=== PATIENT | male | born 1940 | race Caucasian/White ===

== ENCOUNTER 2020-03-04 07:00 | Observation (INO) | payer MEDICARE, OTHER ==
[2020-02-29 09:54] LABS: BASOPHILS # (AUTO) 0.1 X10'3 (0-0.2); BASOPHILS % (AUTO) 1.2 % (0-1); EOSINOPHILS # (AUTO) 0.2 X10'3 (0-0.9); EOSINOPHILS % (AUTO) 3.7 % (0-6); LYMPHOCYTES # (AUTO) 1.3 X10'3 (1.1-4.8); LYMPHOCYTES % (AUTO) 27.4 % (21-51); MEAN CORPUSCULAR HEMOGLOBIN 31.9 PG (27.0-31.0); MEAN CORPUSCULAR HGB CONC 34.4 g/dL (33.0-36.5); MEAN CORPUSCULAR VOLUME 92.5 FL (78-98); MEAN PLATELET VOLUME 7.7 FL (7.4-10.4); MONOCYTES # (AUTO) 0.6 X10'3 (0-0.9); MONOCYTES % (AUTO) 12.8 % (2-12); NEUTROPHILS # (AUTO) 2.5 X10'3 (1.8-7.7); NEUTROPHILS % (AUTO) 54.9 % (42-75); PRE OP HEMATOCRIT 41.9 % (42.0-52.0); PRE OP HEMOGLOBIN 14.4 g/dL (14.0-17.9); PRE OP PLATELET COUNT 265 X10'3 (140-440); RED BLOOD COUNT 4.53 X10'6 (4.70-6.10); RED CELL DISTRIBUTION WIDTH 13.9 % (11.5-14.5)
[2020-02-29 10:11] LABS: ALBUMIN/GLOBULIN RATIO 1.1 (1.1-1.5); ALKALINE PHOSPHATASE 71 IU/L (46-116); BLOOD UREA NITROGEN 13 MG/DL (7-18); BUN/CREATININE RATIO 15.3 (5.4-32.0); CHLORIDE 106 MMOL/L (99-107); CREATININE 0.85 MG/DL (0.60-1.10); PRE OP ALT 25 U/L (30-65); PRE OP ANION GAP 7 (8-16); PRE OP AST 17 U/L (10-37); PRE OP BILIRUB, TOTAL 1.1 MG/DL (0.0-1.0); PRE OP GLUCOSE 95 MG/DL (70-104); PRE OP POTASSIUM 4.4 MMOL/L (3.4-5.1); PRE OP SODIUM 143 MMOL/L (135-145); TOTAL CARBON DIOXIDE 29.7 MMOL/L (24-32); TOTAL PROTEIN 7.6 G/DL (6.4-8.2); eGFR 87 ML/MIN
[~2020-03-04] VITALS: Ht 180.3 cm; Wt 81.9 kg
[2020-03-04] VITALS (22 sets, daily range): BP systolic 102–147; BP diastolic 49–81
[~2020-03-04 07:00] MED LIST: B-COMPLEX; VITAMIN C; ceFAZolin 2gm in dextrose, iso 50 ML IV ONE; famotidine 20mg tablet PO ONE; ringers solution, lacted 1,000 ML IV SCH
[2020-03-04] MEDS ORDERED: LIDOcaine 1% 30ml preserv. free vial ONE (08:51)
[2020-03-04] MEDS ORDERED: BUPIVAcaine/PF 2.5 mg/ml (0.25%) 30ml vial ONE (08:51)
[2020-03-04] MEDS ORDERED: epiNEPHrine 0.1mg/ml 10ml syringe ONE (09:07)
[2020-03-04] MEDS ORDERED: sevoflurane 250ml liquid IH ONE (09:07)
[2020-03-04] MEDS ORDERED: rocuronium 10mg/ml inj IV ONE (09:08)
[2020-03-04] MEDS ORDERED: neostigmine methylsulfate 1 MG/ML 10ml vial ONE (09:08)
[2020-03-04] MEDS ORDERED: ondansetron/PF 4mg/2ml inj ONE (09:08)
[2020-03-04] MEDS ORDERED: dexamethasone sod phosphate 4mg/ml inj. ONE (09:09)
[2020-03-04] MEDS ORDERED: glycopyrrolate 0.2mg/ml inj ONE (09:09)
[2020-03-04] MEDS ORDERED: fentaNYL/PF 50MCG/1 ML 2ML syringe ONE ×2 (09:09→10:33)
[2020-03-04] MEDS ORDERED: LIDOcaine 2% (20mg/ml) 5ml vial ONE (09:09)
[2020-03-04] MEDS ORDERED: propofol inj 20 ML IV ONE (09:09)
--- NOTE | 2020-03-04 10:14 | NUR ---
Received from OR via , accompanied by Anesthesiologist DR TOM and report given by Anesthesiolgist. AWAKENS TO VOICE. VITALS STABLE. DRESSINGS DI. JUSTIN PAIN. ABD SOFT.
[2020-03-04] MEDS ORDERED: HYDROcodone/acetaminophen 5mg/325mg tablet PO PRN ×2 (10:25→12:55)
[2020-03-04] MEDS ORDERED: HYDR-3964 PO (10:30)
--- NOTE | 2020-03-04 10:45 | NUR ---
MONITOR SHOWS PT IN AFIB. ANESTHESIA WAS NOTIFIED ,WITH ORDERS RECEIVED
--- NOTE | 2020-03-04 10:46 | NUR ---
PT JUSTIN CHEST PAIN OR SOB. SKIN IS WARM DRY AND PINK.
[2020-03-04 11:50] LABS: ALANINE AMINOTRANSFERASE 22 U/L (12-78); ALBUMIN 3.8 G/DL (3.4-5.0); ALBUMIN/GLOBULIN RATIO 1.1 (1.1-1.5); ALKALINE PHOSPHATASE 72 IU/L (46-116); ANION GAP 7 (8-16); ASPARTATE AMINO TRANSFERASE 21 U/L (10-37); BILIRUBIN,TOTAL 0.9 MG/DL (0.1-1.0); BLOOD UREA NITROGEN 10 MG/DL (7-18); CALCIUM 8.6 MG/DL (8.5-10.1); CHLORIDE 106 MMOL/L (99-107); CREATININE 0.83 MG/DL (0.60-1.10); GLUCOSE 100 MG/DL (70-104); POTASSIUM 3.8 MMOL/L (3.5-5.1); SODIUM 142 MMOL/L (135-145); TOTAL CARBON DIOXIDE 29.1 MMOL/L (24-32); TOTAL PROTEIN 7.3 G/DL (6.4-8.2); eGFR 90 ML/MIN
[2020-03-04 11:54] LABS: MAGNESIUM 2.3 MG/DL (1.5-2.4); TROPONIN I < 0.04 NG/ML (0.0-0.05)
[2020-03-04] MEDS ORDERED: ondansetron/PF 4mg/2ml inj IV PRN ×2 (12:20→12:55)
[2020-03-04] MEDS ORDERED: acetaminophen 325mg tablet PO PRN ×2 (12:20→12:55)
[2020-03-04] MEDS ORDERED: mag hydrox/Alum hydrox/simeth 30ml oral suspension PO PRN ×2 (12:20→12:55)
[2020-03-04] MEDS ORDERED: magnesium hydroxide 30ml (MOM) UD suspension PO PRN ×2 (12:20→12:55)
[2020-03-04] MEDS ORDERED: morphine 2 MG/ML inj. syringe IV PRN (12:55)
--- NOTE | 2020-03-04 14:43 | NUR ---
Report called to receiving nurse. Transferred via [facility] . Special Issues communicated to receiving nurse. AWAKE AND ORIENTED. VITALS STABLE. DRESSINGS DI. STATES ANLY MIN DISCOMFORT. MONITOR CONTINUES TO SHOW IN AND OUT OF AFIB. IS AWARE. TO [facility] RM 3011 AT THIS TIME.
--- NOTE | 2020-03-04 14:52 | NUR ---
Patient arrived to PCU and transferred from [facility] to bed. Oriented to room and to call light. Vital signs stable. Telemetry monitoring initiated. SR in 80-90's. Patient does not complain of pain. 2 RN skin check performed. 3 bandages noted on anterior abdomen s/p lap hernia repair. All immediate needs met at this time.
[2020-03-04] MEDS ORDERED: aspirin 325mg tablet, delayed-release (Ecotrin) PO ONE (16:40)
[2020-03-04] MEDS: heparin, porcine 5000 units/ml vial SQ SCH (16:46)
--- NOTE | 2020-03-04 18:31 | NUR ---
Problems reprioritized. Patient report given, questions answered & plan of care reviewed with HARPER Rome. Patient stable at transfer of care.
[2020-03-05] MEDS: heparin, porcine 5000 units/ml vial SQ SCH ×2 (00:30→08:03)
[2020-03-05 02:00] VITALS: BP 103/53
[2020-03-05 06:00] VITALS: BP 113/52
--- NOTE | 2020-03-05 06:05 | NUR ---
Patient in room PCU 3011. I have received report from Latricia SALEEM and had the opportunity to ask questions and assume patient care.
--- NOTE | 2020-03-05 06:16 | NUR ---
Problems reprioritized. Patient report given, questions answered & plan of care reviewed with HARPER Montaño.
--- NOTE | 2020-03-05 07:00 | NUR ---
Tele-strips interpreted; Pt is in sinus rhythm.
[2020-03-05] MEDS ORDERED: aspirin 325mg tablet, delayed-release (Ecotrin) PO SCH (08:00)
--- NOTE | 2020-03-05 10:06 | NUR ---
Pt ambulated 300 ft with cane on room air, which is baseline. No complaints of SOB/chest pain. Small amount of pain in abdomen, S/P hernia repair.
--- NOTE | 2020-03-05 10:45 | NUR ---
PAGER ID: [phone] MESSAGE: RE: TomAbdoul ramírez. Room: 3011. Do you want Pt on full dose aspirin after DC? -Danyel [facility] #[id number] Dr. Frank paged concerning DC medications orders.
[2020-03-05 11:00] VITALS: BP 106/58
[2020-03-05] MEDS ORDERED: ASPI-1265 PO (11:06)
--- NOTE | 2020-03-05 12:20 | NUR ---
Pt DC'd home with . IV removed and canula intact. Tele-box removed and returned to tele-tech. Pt alert and oriented and vitals WNL upon DC. Per Dr. Frank pt is stable for DC. DC paperwork printed out and gone over with Pt. Allowed Pt to ask questions concerning DC and then answered them. New medications called into [facility] pharmacy on [address] DC instructions concerning S/P Hernia repair gone over with Pt. Pt's belongings gathered and sent with Pt. Pt wheeled down to lobby via wheelchair where Pt left with in private vehicle for home.
== END 2020-03-05 12:20 | disposition home or self-care (01) ==
LOC: PAS 07:00 → PCU 3S 12:52
PROVIDERS: ADMIT Family Medicine; ATTEND Surgery
DX: K40.90 Unilateral inguinal hernia, without obstruction or gangrene, not specified as recurrent (principal); R10.31 Right lower quadrant pain; Z20.828 Contact with and (suspected) exposure to other viral communicable diseases
CPT/HCPCS: 36415; 49650; 80053; 82948; 83735; 84100; 84484; 85025; 87635; 93005; 93306; 96372; C1781; G0378; J0171; J1100; J1644; J2001; J2405; J2704; J2710; J3010; J3490; S2900; A4215; A4618; J7120